=== PATIENT | male | born 2000 | race Two or more races ===

== ENCOUNTER 2022-11-06 11:33 | Emergency (ER) | payer MEDICAID ==
[2022-11-06 14:45] LABS: HIV (1/2) Antibody/Antigen Non-Reactive (NonReactive); HIV 1/2 INDEX 0.06 S/CO (<1.00)
[2022-11-07 00:50] LABS: Hep C IgG Ab Non-Reactive S/CO (NonReactive); Hep C Index 0.05 S/CO (0-0.79)
[2022-11-07 00:53] LABS: HBSAB Concentration 322.06 mIU/mL; Hep B Surf AB Reactive (NonReactive)
== END 2022-11-06 14:36 | disposition home or self-care (01) ==
LOC: CSHERS 11:33
DX: S61.210A Laceration without foreign body of right index finger without damage to nail, initial encounter (principal); W26.8XXA Contact with other sharp object(s), not elsewhere classified, initial encounter
CPT/HCPCS: 36415; 99283